=== PATIENT | male | born 1980 | race Two or more races ===

== ENCOUNTER 2017-11-21 13:24 | Emergency (ER) | payer MEDICARE, MEDICAID ==
[~2017-11-21] VITALS: Ht 185.4 cm; Wt 90.7 kg
[2017-11-21] MEDS ORDERED: Gentamicin 0.3% Opth Soln 5ml RIGHT EYE ONE (14:00)
[2017-11-21] MEDS ORDERED: VIGAMOX1 DROP LEFT EYE (14:07)
[2017-11-21 14:25] VITALS: BP 162/61
--- NOTE | 2017-11-21 15:25 | Emergency Room Report ---
History of Present Illness General Chief Complaint: Substance Abuse Source: EMS Present Illness HPI Patient is a 37-year-old male presented after a reported recent methamphetamine use. Patient reports having recently had increased discharge his right eye. Patient reports wearing his contact lens constantly. He noted increased right eye discharge. The patient denied any fever. Allergies: Coded Allergies: HYDROMORPHONE (Verified Allergy, Unknown, 11/21/17) Patient History Past Medical History: see triage record Reviewed Nursing Documentation: PMH: Agreed; PSxH: Agreed Nursing Documentation-PMH Past Medical History: No History, Except For Hx Cardiac Problems: No - HIV Hx Asthma: Yes History Of Psychiatric Problem: Yes - BIPOLAR Review of Systems All Other Systems: negative except mentioned in HPI Physical Exam Vital Signs Date Time Temp Pulse Resp B/P (MAP) Pulse Ox O2 Delivery O2 Flow Rate FiO2 11/21/17 13:21 98.0 110 20 146/90 99 Room Air 98.1 General Appearance: well appearing, no apparent distress, Chronically Ill Head: normocephalic, atraumatic Eyes: right eye other - exudate, discharge; bilateral eye PERRL ENT: hearing grossly normal, normal voice, other - right eye redness and discharge, PERRL Neck: full range of motion, supple Respiratory: no respiratory distress, speaking full sentences Cardiovascular #1: normal inspection, normal peripheral pulses, regular rate, rhythm Musculoskeletal: no calf tenderness Neurologic: normal gait, abnormal gait Psychiatric: normal inspection, judgement/insight normal, mood/affect normal Skin: no rash Medical Decision Making Diagnostic Impression: Primary Impression: Contact lens overwear of right eye Additional Impression: Substance abuse ER Course Patient is a 37-year-old male who presented after increased right-sided eye pain and redness. Differential diagnosis included but wasn't limited to glaucoma , iritis, corneal abrasion, bacterial conjunctivitis, viral conjunctivitis. Patient has a benign exam and does not appear to require any further imaging or laboratory testing at this time. The patient was given prescription for Ciloxan drops. The patient is advised follow-up with ophthalmology not to use contact lenses. The patient shows no signs of hypopyon at this time.The patient was advised to stop using drugs Last Vital Signs Date Time Temp Pulse Resp B/P (MAP) Pulse Ox O2 Delivery O2 Flow Rate FiO2 11/21/17 14:25 97.9 97 18 162/61 100 Room Air 97.9 Status: improved Disposition: HOME, SELF-CARE Scripts Moxifloxacin HCl (Vigamox) 3 Ml Drops 1 DROP LEFT EYE THREE TIMES A DAY, #3 ML 0 Refills Prov: José Miguel Montiel MD 11/21/17 Patient Instructions: Bacterial Conjunctivitis, [place], Stimulant Use Disorder-Methamphetamines José Miguel Montiel MD Nov 21, 2017 15:25
== END 2017-11-21 14:25 | disposition home or self-care (01) ==
LOC: EDBD 13:24 → EMR 14:20
DX: F15.10 Other stimulant abuse, uncomplicated (principal); J45.909 Unspecified asthma, uncomplicated; F31.9 Bipolar disorder, unspecified; Z88.6 Allergy status to analgesic agent; H57.9 Unspecified disorder of eye and adnexa
CPT/HCPCS: 93005; 99283